=== PATIENT | female | born 1970 | race Caucasian/White ===

== ENCOUNTER 2022-04-24 10:18 | Emergency (ER) | payer OTHER ==
[2022-04-24] MEDS ORDERED: Hydromorphone 1 mg/ml Injection IV ONE (10:36)
[2022-04-24] MEDS ORDERED: Hydromorphone 1 mg/ml Injection ONE (10:42)
--- NOTE | 2022-04-24 10:42 | ERPHSYRPT ---
- History of Present Illness Time Seen by Provider: 04/24/22 10:38 Source: patient Exam Limitations: no limitations Physician History: Patient is a 51-year-old white female who has a long history of sciatic nerve pain involving L3-4 and 5 she has spinal stenosis. She has had nerve blocks she has had ablations she has been treated with steroids. She has not been to pain management for 4 years and that was also when she had her last imaging. She did see a surgeon approximately 1 month ago who has since left the state. 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 Timing/Duration: other (This represents an acute exacerbation of chronic low back pain.) Method of Injury: unknown Quality: radiating (Radiates into the right buttocks and around the anterior thigh.) Back Pain Location: lumbar spine Back Pain Radiation: buttocks, upper legs Severity of Pain-Max: severe Severity of Pain-Current: severe Modifying Factors: Improves With: movement Associated Symptoms: nausea, lower back pain Previous symptoms: same symptoms as today Allergies/Adverse Reactions: levofloxacin [From Levaquin] Allergy (Verified 04/24/22 10:46) Home Medications: Budesonide [Budesonide EC] 1 tab PO DAILY 04/24/22 [History] Gabapentin [Neurontin] 1 tab PO TID 04/24/22 [History] Valacyclovir HCl [Valacyclovir] 1 tab PO DAILY PRN 04/24/22 [History] clonazePAM [Clonazepam] 1 tab PO TID 04/24/22 [History] - Review of Systems Constitutional: No Fever, No Chills Eyes: No Symptoms Ears, Nose, & Throat: No Symptoms Respiratory: No Cough, No Dyspnea Cardiac: No Chest Pain, No Edema, No Syncope Abdominal/Gastrointestinal: No Abdominal Pain, No Nausea, No Vomiting, No Diarrhea Genitourinary Symptoms: No Dysuria Musculoskeletal: Back Pain, No Neck Pain Skin: No Rash Neurological: No Dizziness, No Focal Weakness, No Sensory Changes Psychological: No Symptoms Endocrine: No Symptoms All Other Systems: Reviewed and Negative - Nursing Vital Signs Nursing Vital Signs: Initial Vital Signs Temperature 98.1 F 04/24/22 10:30 Pulse Rate 100 H 04/24/22 10:30 Respiratory Rate 18 04/24/22 10:30 Blood Pressure 128/91 04/24/22 10:30 O2 Sat by Pulse Oximetry 98 04/24/22 10:30 Pain Scale Pain Intensity [Right lower 9 back] Pain Intensity 8 - Physical Exam General Appearance: moderate distress, alert Eye Exam: PERRL/EOMI, eyes nml inspection Neck Exam: normal inspection, non-tender, supple, full range of motion, No meningismus, No midline tenderness Respiratory Exam: normal breath sounds, lungs clear, No respiratory distress Cardiovascular Exam: regular rate/rhythm, normal heart sounds Gastrointestinal Exam: soft, No tenderness, No mass Back Exam: vertebral tenderness, decreased range of motion, muscle spasm Extremity Exam: normal inspection, normal range of motion, No calf tenderness, No pedal edema Neurologic Exam: alert, oriented x 3, cooperative, box finisher II-XII nml as tested, normal mood/affect, nml station & gait, sensation nml, other (Straight leg raising positive on the right), No motor deficits Skin Exam: normal color, warm, dry, No rash - CT Exams Lumbar Spine CT Interpretation: Other Ordered Tests: Active Orders 24 hr Category Date Time Status LUMBAR SPINE W/O [CT] Stat Exams 04/24/22 11:50 Completed UA W/RFX CULTURE Stat Lab 04/24/22 10:42 Completed Urine Triage Profile Stat Lab 04/24/22 10:42 Completed Medication Summary Discontinued Medications Generic Name Dose Route Start Last Admin Trade Name Freq PRN Reason Stop Dose Admin Hydromorphone HCl 1 mg 04/24/22 10:36 04/24/22 10:43 Hydromorphone 1 Mg/1ml Inj 1 Mg/Ml Syringe IV 04/24/22 10:37 1 mg STAT ONE Administration Hydromorphone HCl Confirm 04/24/22 10:42 Hydromorphone 1 Mg/1ml Inj 1 Mg/Ml Syringe Administered 04/24/22 10:43 Dose 1 mg .ROUTE .STK-MED ONE Ketorolac Tromethamine 60 mg 04/24/22 11:37 04/24/22 11:39 Ketorolac Tromethamine 30 Mg/Ml Inj IM 04/24/22 11:38 60 mg STAT ONE Administration Ketorolac Tromethamine Confirm 04/24/22 11:37 Ketorolac Tromethamine 30 Mg/Ml Inj Administered 04/24/22 11:38 Dose 60 mg .ROUTE .STK-MED ONE Lab/Rad Data: Laboratory Results 04/24/22 04/24/22 Range/Units 10:42 10:42 Urinalys Dipstick Clnc MAIN LAB Urine Color YELLOW (YELLOW) Urine Appearance CLEAR (CLEAR) Urine pH 6.5 (5-6) Ur Specific Sheldon 1.005 (1.005-1.025) POC Urine Protein Conf NEGATIVE (Negative) Urine Ketones NEGATIVE (NEGATIVE) Urine Nitrite NEGATIVE (NEGATIVE) Urine Bilirubin NEGATIVE (NEGATIVE) Urine Urobilinogen 0.2 (0-1) mg/dL Urine Leukocytes TRACE (NEGATIVE) Urine WBC (Auto) 0-2 (0-5) /HPF Urine RBC (Auto) NONE (0-2) /HPF U Epithel Cells (Auto) RARE (FEW) /HPF Urine Bacteria (Auto) RARE (NEGATIVE) /HPF Urine RBC NEGATIVE (0-5) Paulo/ul Ur Culture Indicated? NO Urine Glucose NEGATIVE (NEGATIVE) mg/dL Urine Opiates Level NEGATIVE (NEGATIVE) Ur Methadone NEGATIVE (NEGATIVE) Urine Barbiturates NEGATIVE (NEGATIVE) Ur Phencyclidine (PCP) NEGATIVE (NEGATIVE) Urine Amphetamine NEGATIVE (NEGATIVE) U Benzodiazepine Level NEGATIVE (NEGATIVE) Urine Cocaine NEGATIVE (NEGATIVE) Urine Marijuana (THC) NEGATIVE (NEGATIVE) - Progress Progress: improved - Departure Departure Disposition: Home Clinical Impression: Sciatica Condition: Stable Critical Care Time: No Referrals: AR TRAORE MD [Primary Care Provider] - Follow up/PCP as directed Instructions: Sciatica (DC) Prescriptions: Hydrocodone/Acetaminophen [Hydrocodone-Acetamin 5-325 mg] 1 tab PO Q6HPRN PRN 3 Days #12 tablet MDD 4 PRN Reason: Pain Prednisone 10 mg [Deltasone 10 mg] 10 mg PO TID #12 tablet
[2022-04-24 11:05] LABS: Bacteria RARE /HPF (NEGATIVE); Epithelial Cells RARE /HPF (FEW); WBC 0-2 /HPF (0-5)
[2022-04-24 11:06] LABS: Amphetamine,Urine NEGATIVE (NEGATIVE); Appearance CLEAR (CLEAR); Barbiturate,Urine NEGATIVE (NEGATIVE); Benzodiazepine,Urine NEGATIVE (NEGATIVE); Bilirubin NEGATIVE (NEGATIVE); Cocaine,Urine NEGATIVE (NEGATIVE); Glucose NEGATIVE (NEGATIVE); Ketones NEGATIVE (NEGATIVE); Methadone,Urine NEGATIVE (NEGATIVE); Opiate,Urine NEGATIVE (NEGATIVE); PCP,Urine NEGATIVE (NEGATIVE); Ph 6.5 (5-6); Protein,Urine Dip NEGATIVE (Negative); RBC NEGATIVE Ery/ul (0-5); Specific Gravity 1.005 (1.005-1.025); THC,Urine NEGATIVE (NEGATIVE); Urobilinogen 0.2 mg/dL (0-1)
[2022-04-24 11:07] LABS: Nitrite NEGATIVE (NEGATIVE); Urine Cultured Indicated? NO
[2022-04-24 11:08] LABS: Dipstick done @ ? MAIN LAB
[2022-04-24] MEDS ORDERED: TORAdol 30 mg Injection IM ONE (11:37)
[2022-04-24] MEDS ORDERED: TORAdol 30 mg Injection ONE (11:37)
--- NOTE | 2022-04-24 12:16 | XRAY ---
Indication: Low back pain radiating right leg with numbness. Multiple contiguous axial images obtained through lumbar spine PA sagittal and coronal reformatted images obtained. Comparison: None Axial images demonstrates minimal/mild broad-based disc bulge at L2-S1 levels and L5-S1 degenerative vacuum disc phenomena. No large disc herniation or spinal canal stenosis. Facets are symmetric. Sagittal and coronal reformatted images demonstrates normal lumbar lordosis with minimal levoscoliosis centered at L3. Mild L5-S1 disc space narrowing. No acute compression fracture or subluxation. Visualized noncontrasted soft tissues demonstrates very minimal distal aortic calcifications. Impression: L2-S1 degenerative disc disease better evaluated with outpatient MRI. Remaining CT lumbar spine is negative.
[2022-04-24 12:28] VITALS: BP 109/74; PULSE 80; O2SAT 98
== END 2022-04-24 12:37 | disposition home or self-care (01) ==
LOC: ED 10:18
DX: M54.31 Sciatica, right side (principal); Z79.891 Long term (current) use of opiate analgesic; Z79.52 Long term (current) use of systemic steroids; Z79.899 Other long term (current) drug therapy
CPT/HCPCS: 72131; 80307; 81015; 96372; 99284; J1170; J1885